=== PATIENT | male | born 2000 ===

== ENCOUNTER 2021-03-13 22:52 | Emergency (ER) | payer BC ==
[2021-03-13 23:06] VITALS: BP 125/69
--- NOTE | 2021-03-14 02:28 | Emergency Department Report ---
ED Anxiety HPI - General Chief Complaint: Anxiety Stated Complaint: SEVERE ANXIETY/BLACKOUTS/HEAVY CHEST Time Seen by Provider: 03/14/21 02:24 Source: patient Mode of arrival: Ambulatory - History of Present Illness Initial Comments: 20-year-old occasion male presents to the emergency room from [facility] for anxiety. Patient reports a history of anxiety disorder generalized anxiety PTSD. Patient denies any pain. Patient denies any suicidal homicidal ideation. MD Complaint: anxiety -: This afternoon Place: other ([facility]) Previous History of Same: Yes Severity: severe Quality: improving Provoking factors: none known Improves With: rest Worsens With: thinking about event Associated symptoms: shortness of breath, confusion - Related Data Allergies/Adverse Reactions: Allergies Allergy/AdvReac Type Severity Reaction Status Date / Time No Known Allergies Allergy Verified 03/13/21 23:00 ED Review of Systems ROS: Stated complaint: SEVERE ANXIETY/BLACKOUTS/HEAVY CHEST Other details as noted in HPI Comment: All other systems reviewed and negative ED Past Medical Hx - Past Medical History Hx Diabetes: Yes Hx Psychiatric Treatment: Yes (laurie ,depression ,) - Surgical History Past Surgical History?: No Hx Coronary Stent: No Hx Open Heart Surgery: No Hx Pacemaker: No Hx Internal Defibrillator: No Hx Cholecystectomy: No Hx Appendectomy: No Hx Breast Surgery: No - Social History Smoking Status: Never Smoker Substance Use Type: None ED Physical Exam - General Limitations: No Limitations General appearance: alert, in no apparent distress - Head Head exam: Present: atraumatic, normocephalic - Eye Eye exam: Present: normal appearance - ENT ENT exam: Present: mucous membranes moist - Neck Neck exam: Present: normal inspection - Respiratory Respiratory exam: Present: normal lung sounds bilaterally. Absent: respiratory distress - Cardiovascular Cardiovascular Exam: Present: regular rate (60 bpm) - Back Exam Back exam: Present: normal inspection, full ROM - Neurological Exam Neurological exam: Present: alert, oriented X3, normal gait - Psychiatric Psychiatric exam: Present: flat affect. Absent: homicidal ideation, suicidal ideation - Skin Skin exam: Present: warm, dry, intact, normal color. Absent: rash ED Course Vital Signs 03/13/21 23:00 Temperature 98.6 F Pulse Rate 102 H Respiratory 20 Rate Blood Pressure 125/69 O2 Sat by Pulse 96 Oximetry ED Medical Decision Making - Medical Decision Making 20-year-old occasion male presents to the emergency room from [facility] for anxiety. Patient reports a history of anxiety disorder generalized anxiety PTSD. Patient denies any pain. Patient denies any suicidal homicidal ideation. Repeat pulses 60 bpm respirations 16 pulse ox 97% on room air. Patient is stable to be discharged home patient is to continue medications from detox center. Critical care attestation.: If time is entered above; I have spent that time in minutes in the direct care of this critically ill patient, excluding procedure time. ED Disposition Clinical Impression: Anxiety disorder Qualifiers: Anxiety disorder type: generalized anxiety disorder Qualified Code(s): F41.1 - Generalized anxiety disorder Disposition: DC-01 TO HOME OR SELFCARE Is pt being admited?: No Does the pt Need Aspirin: No Condition: Stable Instructions: Managing Anxiety, Adult Additional Instructions: Follow-up with your mental health provider. Patient is to return to [facility]. Referrals: PRIMARY CARE, [Primary Care Provider] - 3-5 Days [facility] [Outside] - 3-5 Days
== END 2021-03-14 02:30 | disposition left against medical advice (07) ==
LOC: ED 22:52
DX: F41.9 Anxiety disorder, unspecified (principal); E11.9 Type 2 diabetes mellitus without complications; F32.9 Major depressive disorder, single episode, unspecified
CPT/HCPCS: 99281